=== PATIENT | male | born 1970 | race Caucasian/White ===

== ENCOUNTER 2018-06-29 20:49 | Emergency (ER) | payer MEDICAID ==
[~2018-06-29] VITALS: Ht 182.9 cm; Wt 90.7 kg
--- NOTE | 2018-06-29 22:25 | NUR ---
Dr. Quinones at bedside for MSE.
[2018-06-29] MEDS ORDERED: LIDOCAINE HCL 1% 20 ML VIAL IJ ONE (22:30)
[2018-06-29] MEDS ORDERED: TDAP DIPH,PERTUSS,TET VAC/PF 0.5 ML DISP.SYRIN IM ONE ×2 (22:30→22:36)
[2018-06-29] MEDS ORDERED: CEphaleXIN 500 MG CAPSULE PO ONE (23:00)
[2018-06-29] MEDS ORDERED: NEOMY/BACITRA/POLYMYXIN B OINT UD PACKET TP ONE ×2 (23:00)
[2018-06-29] MEDS ORDERED: CEphaleXIN 500 MG CAPSULE ONE (23:11)
--- NOTE | 2018-06-29 23:22 | NUR ---
Patient discharged to home in stable conditon. Written and verbal after care instructions given. Patient verbalizes understanding of instructions. Patient ambulated out of ER with steady gait, no acute signs of distress, VSS, all belongings taken.
[2018-06-29 23:23] VITALS: BP 115/82
== END 2018-06-29 23:23 | disposition home or self-care (01) ==
LOC: ER 20:49
DX: S61.211A Laceration without foreign body of left index finger without damage to nail, initial encounter (principal); F17.200 Nicotine dependence, unspecified, uncomplicated; W26.8XXA Contact with other sharp object(s), not elsewhere classified, initial encounter; Y92.89 Other specified places as the place of occurrence of the external cause; Y99.8 Other external cause status
CPT/HCPCS: 12001; 90471; 90715; 99283; J3490; A4663

== ENCOUNTER 2018-07-14 10:48 | Emergency (ER) | payer MEDICAID ==
[~2018-07-14] VITALS: Ht 182.9 cm; Wt 90.7 kg
--- NOTE | 2018-07-14 11:02 | NUR ---
Sutures (left index finger) removed by .
--- NOTE | 2018-07-14 11:11 | NUR ---
Patient discharged to home in stable conditon. Written and verbal after care instructions given. Patient verbalizes understanding of instructions.
[2018-07-14] MEDS ORDERED: ACETAMINOPHEN ES 500 MG TABLET ONE (11:14)
[2018-07-14] MEDS ORDERED: ACETAMINOPHEN ES 500 MG TABLET PO ONE (11:15)
== END 2018-07-14 11:15 | disposition home or self-care (01) ==
LOC: ER 10:48
DX: S61.210D Laceration without foreign body of right index finger without damage to nail, subsequent encounter (principal); F17.200 Nicotine dependence, unspecified, uncomplicated; X58.XXXD Exposure to other specified factors, subsequent encounter
CPT/HCPCS: A4663; A9150

== ENCOUNTER 2021-03-27 05:26 | Emergency (ER) | payer MEDICAID, OTHER ==
[~2021-03-27] VITALS: Ht 182.9 cm; Wt 86.2 kg
--- NOTE | 2021-03-27 05:40 | NUR ---
Patient arrive at the ER with c/o left earache x2 days.
--- NOTE | 2021-03-27 06:01 | NUR ---
Dr. Desai on bedside for MSE.
[2021-03-27] MEDS ORDERED: MORPHINE SULFATE 4 MG/1 ML DISP.SYRIN IM ONE (06:15)
[2021-03-27] MEDS ORDERED: HYDR-4209 PO (06:24)
[2021-03-27] MEDS ORDERED: CIPR-262 PO (06:24)
[2021-03-27] MEDS ORDERED: CIPR7.5D LEFT EAR (06:24)
--- NOTE | 2021-03-27 06:30 | NUR ---
Patient discharged to home in stable condition. Written and verbal after care instructions given. Patient verbalizes understanding of instructions. Stressed follow up or return to ER for worsening s/s. Patient ambulated fr the ER with steady gait. All belongings with patient.
[2021-03-27 06:31] VITALS: BP 112/82
[2021-03-27] MEDS ORDERED: MORPHINE SULFATE 4 MG/1 ML DISP.SYRIN ONE (06:34)
== END 2021-03-27 06:31 | disposition home or self-care (01) ==
LOC: ER 05:33
DX: H61.002 Unspecified perichondritis of left external ear (principal); H60.92 Unspecified otitis externa, left ear; T14.90XS Injury, unspecified, sequela; V49.9XXS Car occupant (driver) (passenger) injured in unspecified traffic accident, sequela; F17.200 Nicotine dependence, unspecified, uncomplicated
CPT/HCPCS: 96372; 99283; J2270; A4663

== ENCOUNTER 2024-01-17 00:13 | Emergency (ER) | payer MEDICAID, OTHER ==
[~2024-01-17] VITALS: Ht 182.9 cm; Wt 86.2 kg
[~2024-01-17 00:13] MED LIST: CIPR-262 PO; CIPR7.5D LEFT EAR; HYDR-4209 PO
[2024-01-17 00:15] VITALS: O2SAT 97
[2024-01-17] MEDS ORDERED: IBUPROFEN 800 MG TABLET ONE (00:36)
[2024-01-17] MEDS: IBUPROFEN 800 MG TABLET PO ONE (00:40)
[2024-01-17] MEDS ORDERED: HYDR-3974 PO (01:22)
[2024-01-17] MEDS ORDERED: NAPR-1009 PO (01:22)
== END 2024-01-17 01:30 | disposition home or self-care (01) ==
LOC: ER 00:22
DX: S83.8X1A Sprain of other specified parts of right knee, initial encounter (principal); Z79.891 Long term (current) use of opiate analgesic; Z79.899 Other long term (current) drug therapy; W18.39XA Other fall on same level, initial encounter; Y93.89 Activity, other specified; Y92.89 Other specified places as the place of occurrence of the external cause; Y99.8 Other external cause status
CPT/HCPCS: A4606

== ENCOUNTER 2024-01-28 04:15 | Emergency (ER) | payer MEDICAID ==
[~2024-01-28 04:15] MED LIST changes: +HYDR-3974 PO; +NAPR-1009 PO
== END 2024-01-28 05:10 | disposition left against medical advice (07) ==
LOC: ER 04:20
DX: M25.561 Pain in right knee (principal); Z53.21 Procedure and treatment not carried out due to patient leaving prior to being seen by health care provider

== ENCOUNTER 2025-03-12 22:07 | Emergency (ER) | payer MEDICAID ==
[~2025-03-12] VITALS: Ht 182.9 cm; Wt 90.7 kg
[2025-03-12 22:24] VITALS: BP 143/74
[2025-03-12] MEDS ORDERED: LIDOCAINE 2% (GLYDO= UROJET) 10 ML JELLY MM ONE (22:30)
[2025-03-12 22:54] LABS: PLATELET COUNT (AUTO) 266 K/uL (152-348); RED BLOOD CELL COUNT(AUTO) 5.04 MIL/uL (4.06-5.63); RED CELL DISTRIBUTION WIDTH 13.5 % (12.1-16.2); WHITE BLOOD COUNT (AUTO) 8.5 K/uL (3.6-10.2)
[2025-03-12] MEDS ORDERED: MECLIZINE HCL 25 MG TABLET ONE (22:57)
[2025-03-12] MEDS: MECLIZINE HCL 25 MG TABLET PO ONE (23:01)
[2025-03-12 23:02] LABS: CREATININE 1.0 mg/dL (0.6-1.3); SODIUM SERUM 146 mmol/L (136-145); UREA NITROGEN, BLOOD 15 mg/dL (7-18)
[2025-03-12 23:08] LABS: ASPARTATE AMINOTRANSFERASE 18 U/L (15-37); TOTAL PROTEIN, SERUM 7.2 g/dL (6.4-8.2)
[2025-03-12] MEDS: IV NORMAL SALINE 1000 ML BAG IV ONE (23:11)
[2025-03-12] MEDS ORDERED: MECL-159 PO (23:39)
[2025-03-12 23:49] LABS: *BILIRUBIN,URIN NEGATIVE (NEGATIVE); *BLOOD, URINE NEGATIVE (NEGATIVE); *CLARITY,URINE CLEAR (CLEAR); *COLOR,URINE YELLOW (YELLOW); *KETONES,URINE NEGATIVE (NEGATIVE); *PROTEIN,URINE 2+ (NEGATIVE); *UROBILINOGEN,URINE 1.0 E.U./dl (NORMAL); LEUKOCYTE ESTERASE ,URINE NEGATIVE (NEGATIVE); NITRITE, URINE NEGATIVE (NEGATIVE); UGLUCOSE NEGATIVE (NEGATIVE)
[2025-03-13 00:02] LABS: *AMPHETAMINE, URINE POSITIVE (NEGATIVE); *BARBITURATE, URINE NEGATIVE (NEGATIVE); *BENZODIAZEPINE, URINE NEGATIVE (NEGATIVE); *CANNABINOID, URINE NEGATIVE (NEGATIVE); *COCCAINE, URINE NEGATIVE (NEGATIVE); *OPIATE, URINE NEGATIVE (NEGATIVE); *PHENCYCLIDINE SCREEN,URINE NEGATIVE (NEGATIVE); FENTANYL, URINE NEGATIVE (NEGATIVE)
[2025-03-13 00:05] LABS: SQUAMOUS EPITHELIAL CELL,UR FEW /HPF (NONE SEEN)
[2025-03-13 00:38] VITALS: BP 143/74; O2SAT 97
== END 2025-03-13 00:38 | disposition home or self-care (01) ==
LOC: ER 22:07
DX: F15.10 Other stimulant abuse, uncomplicated (principal); F17.210 Nicotine dependence, cigarettes, uncomplicated; R55 Syncope and collapse; Z79.899 Other long term (current) drug therapy
CPT/HCPCS: 99285; 96360; 71045; 99406; 80076; 80048; 81001; 85025; 84484; 36415; 93005; 80307; J7040; A4606; A4663; J8597

== ENCOUNTER 2025-03-16 04:06 | Emergency (ER) | payer MEDICAID ==
[~2025-03-16] VITALS: Ht 182.9 cm; Wt 90.7 kg
[~2025-03-16 04:06] MED LIST changes: +MECL-159 PO
[2025-03-16 04:18] VITALS: BP 135/90
[2025-03-16] MEDS ORDERED: MUPIROCIN 2% OINT 22 GM TUBE ONE (04:33)
[2025-03-16] MEDS: MUPIROCIN 2% OINT 22 GM TUBE TP ONE (04:44)
[2025-03-16 04:47] VITALS: BP 130/88; O2SAT 99
== END 2025-03-16 04:43 ==
LOC: ER 04:12
DX: F15.10 Other stimulant abuse, uncomplicated (principal); L01.00 Impetigo, unspecified; F17.210 Nicotine dependence, cigarettes, uncomplicated
CPT/HCPCS: A4606; A4663